=== PATIENT | male | born 1965 | race Hispanic/Latino ===

== ENCOUNTER → 2017-09-04 | Outpatient (CLI) | payer OTHER | END | disposition home or self-care (01) | LOC: RAH 08:46 | PROVIDERS: ATTEND Orthopaedic Surgery | DX: S02.2XXA Fracture of nasal bones, initial encounter for closed fracture (principal); J34.2 Deviated nasal septum; X58.XXXA Exposure to other specified factors, initial encounter; Y93.89 Activity, other specified; Y92.89 Other specified places as the place of occurrence of the external cause; Y99.8 Other external cause status | CPT/HCPCS: 70160 ==

== ENCOUNTER → 2019-03-27 | Outpatient (CLI) | payer OTHER ==
[2019-03-27 11:22] LABS: CREATININE 1.1 mg/dL (0.5-1.5)
== END | disposition home or self-care (01) ==
LOC: LAB 10:08
PROVIDERS: ATTEND Internal Medicine
DX: R06.02 Shortness of breath (principal)
CPT/HCPCS: 36415; 82565; 84520

== ENCOUNTER → 2019-03-28 | Outpatient (CLI) | payer OTHER ==
[~2019-03-28] MED LIST: IOHEXOL-350 75 ML VIAL IV ONE
== END | disposition home or self-care (01) ==
LOC: RAH 07:48
PROVIDERS: ATTEND Internal Medicine
DX: R06.02 Shortness of breath (principal); M47.815 Spondylosis without myelopathy or radiculopathy, thoracolumbar region; Z90.49 Acquired absence of other specified parts of digestive tract
CPT/HCPCS: 71275; Q9967

== ENCOUNTER 2023-10-01 09:31 | Emergency (ER) | payer OTHER ==
[~2023-10-01] VITALS: Ht 165.1 cm; Wt 83.9 kg
[~2023-10-01 09:31] MED LIST changes: +DICL100G61 TP; +FLUT9.9S NS; +GABA300C PO; +HYDR-4060 PO; -IOHEXOL-350 75 ML VIAL IV ONE; +NAPR-1023 PO; +OMEP10CA5 PO; +ROSU10TA28 PO; +SERT-440 PO
[2023-10-01 09:32] VITALS: BP 108/72; PULSE 59; RESP 16
== END 2023-10-01 10:18 | disposition left against medical advice (07) ==
LOC: EDH 09:31
DX: H53.8 Other visual disturbances (principal); Z53.21 Procedure and treatment not carried out due to patient leaving prior to being seen by health care provider
CPT/HCPCS: 99281

== ENCOUNTER → 2024-12-24 | Outpatient (CLI) | payer OTHER ==
[~2024-12-24] MED LIST changes: -NAPR-1023 PO; +NAPR-1194 PO; -ROSU10TA28 PO; +ROSU10TA72 PO
[2024-12-24 22:15] VITALS: PULSE 53; RESP 12
[2024-12-24 22:48] VITALS: PULSE 53; RESP 20
[2024-12-24 23:00] VITALS: PULSE 52; RESP 14
[2024-12-24 23:35] VITALS: PULSE 52; RESP 12
[2024-12-25] VITALS (10 sets, daily range): PULSE 48–74; RESP 14–18
== END | disposition home or self-care (01) ==
LOC: SLP 20:29
PROVIDERS: ATTEND Internal Medicine Hospice and Palliative Medicine
DX: G47.33 Obstructive sleep apnea (adult) (pediatric) (principal); R06.83 Snoring; G47.19 Other hypersomnia
CPT/HCPCS: 95810